=== PATIENT | female | born 1985 | race African-American/Black ===

== ENCOUNTER 2020-09-12 11:26 | Emergency (ER) | payer OTHER, SELFPAY ==
[2020-09-12 11:37] VITALS: BP 205/106; PULSE 110; RESP 18; TEMP 36.9; O2SAT 100; BMI 30.5
--- NOTE | 2020-09-12 12:32 | ED_ITS ---
HPI - General Adult General Chief complaint: Extremity Injury, Upper Stated complaint: injury yest. to right hand/severe pain Time Seen by Provider: 09/12/20 12:32 Source: patient Mode of arrival: Ambulatory Limitations: no limitations History of Present Illness HPI narrative: Patient is a 34-year-old female who yesterday sustained an injury to her right thumb finger while using a mandoline cutting food at home. She was seen at the walk-in clinic because there was difficulty controlling bleeding. A bandage was placed over the area. She comes in today for continued pain to the right finger and also some redness to the right index finger. Related Data Previous Rx's Medication Instructions Recorded tramadol 50 mg PO Q6H PRN #4 tab 09/12/20 Allergies Allergy/AdvReac Type Severity Reaction Status Date / Time coconut Allergy Verified 09/12/20 11:44 pollen extracts Allergy Verified 09/12/20 11:44 Review of Systems Constitutional Constitutional: Denies fever(s) and Denies headache(s) Eyes Eyes: Denies blurry vision ENT Ears, Nose, Mouth, and Throat: Denies headache(s) and Denies sore throat Musculoskeletal Musculoskeletal: Denies tingling Comments: Right thumb pain Integumentary/Breasts Comments: Cut to right thumb Neurologic Neurologic: Denies headache(s) and Denies tingling Psychiatric Psychiatric: Denies depression Hematologic/Lymphatic On Anticoagulants: No Allergic/Immunologic Allergic/Immunologic: Denies urticaria Patient History Medical History Healthy adult Social History Smoking Status: Current every day smoker Smoking Status: Current every day smoker alcohol intake frequency: 0-2 drinks per day Substance Use Type: does not use Exam Initial Vital Signs Initial Vital Signs: Vital Signs Temperature 98.5 F 09/12/20 11:37 Pulse Rate 110 H 09/12/20 11:37 Respiratory Rate 18 09/12/20 11:37 Blood Pressure 205/106 H 09/12/20 11:37 Pulse Oximetry 100 09/12/20 11:37 Const General: cooperative and comfortable Limitations: mental status not altered HENMT Head: normal to inspection and normocephalic Cardio Pulses: radial pulses present on the right Skin Other: Patient does have Gelfoam over the palmar aspect distal right thumb. There is no active bleeding. There is small what appears to be bruising on the palmar aspect of the distal index finger. No active bleeding. Neuro Sensory Exam: no sensory deficits noted Extrem General: capillary refill normal Psych Appearance: grossly normal and well kempt Course Orders Ordered: Discontinued Medications Hydrocodone Bitart/Acetaminophen (Hydrocodone/Acet 5/325 Tablet) 1 tab PO NOW ONE Stop: 09/12/20 12:33 Last Admin: 09/12/20 12:43 Dose: 1 tab Documented by: JERRY Vital Signs Vital signs: Vital Signs - 8 hr 09/12/20 11:37 09/12/20 12:41 Temperature 98.5 F 98.5 F Pulse Rate 110 H 96 H Respiratory Rate 18 Blood Pressure 205/106 H 173/84 H Pulse Oximetry 100 100 Medical Decision Making MDM Narrative Medical decision making narrative: I did not remove the Gelfoam because I did not want to make the wound bleed again but the skin around the area looks well. There appears to be small bruising of the tip of the index finger no active bleeding. I feel no further workup is needed here in the emergency department. There is no signs of infection. Low suspicion for fracture. Will send home with pain medication. She is given return precautions and follow-up inst ructions. She expressed understanding agreement. Discharge Plan Departure Patient Disposition: Home Clinical Impression: Finger laceration Instructions: DI for Minor Laceration Activity Restrictions/Additional Instructions: I recommend that you leave the blood clotting foam on the finger until it falls off on its own. You can change the bandage daily. You can wash your hands like normal and shower like normal. Take Tylenol/ibuprofen as baseline for your discomfort. Return to the emergency department for any new or worsening symptoms Prescriptions: New tramadol 50 mg tablet 50 mg PO Q6H PRN (Reason: pain) Qty: 4 RF: 0
[2020-09-12 12:41] VITALS: BP 173/84; PULSE 96; TEMP 36.9; O2SAT 100
[2020-09-12] MEDS: HYDROCODONE/ACET 5/325 TABLET 1 TAB PO (12:43)
--- NOTE | 2020-09-12 12:47 | PC.NURSE ---
Wound undressed and inspected by Dr. Jain. Wound redressed by this RN with nonadherent dressing and kerlex.
== END 2020-09-12 13:03 | disposition home or self-care (01) ==
PROVIDERS: Emergency Provider Emergency Medicine
DX: S61.011A Laceration without foreign body of right thumb without damage to nail, initial encounter (principal); W26.8XXA Contact with other sharp object(s), not elsewhere classified, initial encounter
CPT/HCPCS: 99283

== ENCOUNTER → 2020-10-04 11:46 | Outpatient (CLI) | payer OTHER, SELFPAY ==
--- NOTE | 2020-10-04 12:05 | DI.RAD.S_ITS ---
PROCEDURE: XR FINGER RT MIN 2V INDICATIONS: right thumb injury, pain TECHNIQUE: AP hand, 2 views of the right finger(s) acquired. COMPARISON: None. FINDINGS: Bones: No fracture. Soft tissues: 4 mm density projecting on skin surface or possibly the superficial soft tissues of the thumb as depicted on the montage image. This could represent foreign body although recommend close clinical correlation and direct visual inspection. IMPRESSION: No fracture. If the patient's symptoms do not improve recommend followup radiographs in 10 days to assess for healing sclerosis/occult injury. Possible foreign body projects at the level of the distal phalanx of the thumb as above. Dictated by: Chris Bradley M.D. on 10/04/2020 at 14:53 Approved by: Chris Bradley M.D. on 10/04/2020 at 14:55
== END ==
PROVIDERS: PCP Registered Nurse; Referring Provider Registered Nurse; Visit Provider Registered Nurse
DX: S69.91XA Unspecified injury of right wrist, hand and finger(s), initial encounter (principal); X58.XXXA Exposure to other specified factors, initial encounter
CPT/HCPCS: 73140

== ENCOUNTER → 2020-12-25 14:16 | Outpatient (CLI) | payer OTHER, SELFPAY ==
[2020-12-25 16:13] LABS: Add Manual Diff / Slide Review NO; Basophils Absolute Auto 100 /uL (0-100); Basophils Percent Auto 0.8 % (0-2); Eosinophils Absolute Auto 100 /uL (0-450); Eosinophils Percent Auto 1.3 % (2-4); Lymphocytes Absolute Auto 1900 /uL (1100-4500); Lymphocytes Percent Auto 22.9 % (25-40); Mean Corpuscular HGB Conc 34.3 % (30-36); Mean Corpuscular Hemoglobin 29.6 PG (26-34); Mean Corpuscular Volume 86.4 fL (80-100); Monocytes Absolute Auto 400 /uL (0-900); Monocytes Percent Auto 5.1 % (3-14); Neutrophils Absolute Auto 5700 /uL (1500-7000); Neutrophils Percent Auto 69.9 % (50-75); Platelet Count 354 X10^3/uL (150-400); Red Blood Cell Count 4.74 X10^6/uL (4.0-5.2); White Blood Cell Count 8.2 X10^3/uL (4.5-11.0)
[2020-12-25 16:15] LABS: Alanine Aminotransferase 30 IU/L (<35); Albumin 5.2 g/dL (3.5-5.0); Albumin Globulin Ratio 1.2 (1.0-2.8); Alkaline Phosphatase 77 U/L (38-126); Aspartate Aminotransferase 34 IU/L (14-36); BUN Creatinine Ratio 16.9 (6-22); Bilirubin Total 0.5 mg/dL (0.2-1.3); Blood Urea Nitrogen 10 mg/dL (7-17); Calcium 10.5 mg/dL (8.4-10.2); Carbon Dioxide 20 mmol/L (22-32); Chloride 105 mmol/L (98-107); Cholesterol 256 mg/dL (140-199); Estimated Glomerular Filt Rate > 60.0 mL/min (>60); Globulin 4.3 g/dL (1.7-4.1); Glucose 86 mg/dL (70-100); HDL Cholesterol 56 mg/dL (40-60); HEMOLYSIS < 15 (0-50); LDL Cholesterol Calculated 153 mg/dL (<100); Potassium 3.8 mmol/L (3.4-5.1); Sodium 137 mmol/L (137-145); Total Protein 9.5 g/dL (6.3-8.2); Triglycerides 234 mg/dL (35-150)
[2020-12-25 16:46] LABS: TSH w/ Reflex to FT4 1.46 uIU/mL (0.47-4.68)
== END ==
PROVIDERS: PCP Family Medicine; Referring Provider Family Medicine; Visit Provider Family Medicine
DX: I10 Essential (primary) hypertension (principal); Z83.42 Family history of familial hypercholesterolemia
CPT/HCPCS: 36415; 80053; 80061; 84443; 85025

== ENCOUNTER 2020-12-28 00:43 | Emergency (ER) | payer OTHER, SELFPAY ==
[2020-12-28] VITALS (13 sets, daily range): BP systolic 146–214; BP diastolic 69–107; PULSE 89–106; RESP 17–24; TEMP 37.1; O2SAT 99–100; BMI 30.4
[2020-12-28] MEDS: SODIUM CHLORIDE 0.9% 1,000 ML 150 ML IV (01:12)
[2020-12-28] MEDS: LABETALOL 20 MG/4 ML SYRINGE IV (01:12)
[2020-12-28 01:32] LABS: Add Manual Diff / Slide Review NO; Basophils Absolute Auto 0 /uL (0-100); Basophils Percent Auto 0.4 % (0-2); Eosinophils Absolute Auto 100 /uL (0-450); Eosinophils Percent Auto 1.2 % (2-4); Hemoglobin 12.7 g/dL (12.0-16.0); Lymphocytes Absolute Auto 1800 /uL (1100-4500); Lymphocytes Percent Auto 17.1 % (25-40); Mean Corpuscular HGB Conc 33.4 % (30-36); Mean Corpuscular Hemoglobin 29.1 PG (26-34); Mean Corpuscular Volume 87.1 fL (80-100); Monocytes Absolute Auto 600 /uL (0-900); Monocytes Percent Auto 6.3 % (3-14); Neutrophils Absolute Auto 7700 /uL (1500-7000); Platelet Count 351 X10^3/uL (150-400); Red Blood Cell Count 4.36 X10^6/uL (4.0-5.2); Red Cell Distribution Width 12.8 % (11.6-14.8); White Blood Cell Count 10.3 X10^3/uL (4.5-11.0)
[2020-12-28 01:40] LABS: Alanine Aminotransferase 27 IU/L (<35); Albumin 4.8 g/dL (3.5-5.0); Albumin Globulin Ratio 1.3 (1.0-2.8); Alkaline Phosphatase 68 U/L (38-126); Aspartate Aminotransferase 33 IU/L (14-36); BUN Creatinine Ratio 16.1 (6-22); Bilirubin Total 0.7 mg/dL (0.2-1.3); Blood Urea Nitrogen 10 mg/dL (7-17); Calcium 9.7 mg/dL (8.4-10.2); Carbon Dioxide 22 mmol/L (22-32); Chloride 103 mmol/L (98-107); Creatine Kinase 96 U/L (30-135); Estimated Glomerular Filt Rate > 60.0 mL/min (>60); Globulin 3.8 g/dL (1.7-4.1); Glucose 119 mg/dL (70-100); HEMOLYSIS < 15 (0-50); Lipase 97 U/L (23-300); Potassium 3.7 mmol/L (3.4-5.1); Sodium 137 mmol/L (137-145); Total Protein 8.6 g/dL (6.3-8.2)
--- NOTE | 2020-12-28 01:41 | ED_ITS ---
HPI - General Adult General Chief complaint: Hypertension Stated complaint: headache x1 day high blood pressure Time Seen by Provider: 12/28/20 00:46 History of Present Illness HPI narrative: 35-year-old female daily smoker with history of hypertension presents with family in the chief complaint of a terrible headache over the course of the day that started at about 3:00 a.m. this morning. She has found her blood pressure to be slowly creeping upwards despite recently starting amlodipine. She had contacted her primary care provider about 24 hours ago encouraged her to take a 2nd amlodipine and if in 1 hour she still had elevated blood pressure and symptoms to present to the emergency department. She went throughout the day having elevated pressures over 200 with headache and nausea but no chest pain or shortness of breath. No numbness, tingling or weakness. She presented tonight with worsening headache. She denies any neck pain or the use of blood thinners. She has had no fever or chills. She denies any trauma or injury. She denies blurred vision, trouble with speech or numbness, tingling or weakness Related Data Previous Rx's Medication Instructions Recorded fluticasone propionate 50 1 spray INTRANASAL BID PRN #9.9 ml 10/04/20 mcg/actuation nasal spray,suspension (Allergy Relief (fluticasone)) montelukast 10 mg tablet 10 mg PO DAILY PRN 30 Days #30 tab 10/04/20 (Singulair) amlodipine 5 mg tablet 5 mg PO .qhs #90 tab 12/25/20 bupropion HCl 150 mg tablet,12 hr 150 mg PO BID #90 ea 12/25/20 sustained-release (Wellbutrin SR) metoprolol succinate 25 mg 25 mg PO DAILY #30 tab 12/28/20 tablet,extended release 24 hr Allergies Allergy/AdvReac Type Severity Reaction Status Date / Time coconut Allergy Verified 12/25/20 13:31 pollen extracts Allergy Verified 12/25/20 13:31 Review of Systems Review of Systems Narrative: GENERAL: See HPI HEENT: Denies sinus pain, ear pain, sore throat, difficulty swallowing, dizziness. RESPIRATORY: Denies dyspnea, cough, wheezing, hemoptysis, sputum. CARDIOVASCULAR: Denies chest pain, palpitations, orthopnea, edema, GASTROINTESTINAL: Denies nausea, vomiting, abdominal pain, diarrhea, constipat ion, melena. : Denies dysuria, frequency, incontinence, hematuria, urinary retention. MUSCULOSKELETAL: denies weakness, joint pain, or bony pain SKIN: Denies rash, skin lesions, or other NEUROLOGIC: See HPI PSYCHIATRIC: No concerning psychosocial issues. 12 point review of systems is negative except for those stated above Patient History Medical History Elevated blood protein Healthy adult Hypercalcemia Injury of right thumb Social History Smoking Status: Current every day smoker Smoking Status: Current every day smoker alcohol intake frequency: 0-2 drinks per day Substance Use Type: does not use Exam Narrative Exam Narrative: GENERAL: [35] year old patient appears stated age. Well- developed patient, in mild distress. HEAD: Atraumatic. Normocephalic. EYES: Pupils equal round and reactive. Extraocular motions intact. No scleral icterus. No injection or drainage. ENT: Nose without bleeding, purulent drainage. Throat without erythema, tonsillar hypertrophy or exudate. Airway patent. NECK: Trachea midline. Non tender CARDIOVASCULAR: Regular rate and rhythm without murmurs, gallops, or rubs. RESPIRATORY: Clear to auscultation. Breath sounds equal bilaterally. No wheezes, rales, or rhonchi. GASTROINTESTINAL: Abdomen soft, non-tender, nondistended. EXTREMITIES: No edema or joint tenderness. BACK: Nontender without deformity or crepitance. No flank tenderness. NEURO: AOx3. SKIN: No rash or erythema of visible areas Initial Vital Signs Initial Vital Signs: Vital Signs Temperature 98.7 F 12/28/20 00:45 Pulse Rate 106 H 12/28/20 00:45 Respiratory Rate 18 12/28/20 00:45 Blood Pressure 214/107 H 12/28/20 00:45 Pulse Oximetry 100 12/28/20 00:45 Course Orders Ordered: ED Orders 12/28/20 00:54 EKG-12 Lead Stat 12/28/20 01:25 Complete Blood Count AUTO DIFF Stat Comprehensive Metabolic Panel Stat Lipase Stat NT-proBNP (BNP-Adult 18+) Stat Troponin & CK Cardiac Panel Stat Sodium Chloride (Normal Saline 0.9%) 1,000 mls @ 150 mls/hr IV CONT GRAHAM Last Infusion: 12/28/20 03:05 Dose: 0 mls/hr Documented by: Admin: 12/28/20 01:12 Dose: 150 mls/hr Documented by: SOFIA Discontinued Medications Labetalol HCl (Labetalol 20 Mg/4 Ml Syringe) 20 mg IV NOW ONE Stop: 12/28/20 00:55 Last Admin: 12/28/20 01:12 Dose: 20 mg Documented by: SOFIA Reevaluation(s) Reevaluation #1: Tremendous improvement after labetalol. Headache is gone, no other symptoms, blood pressure in the 150s Vital Signs Vital signs: Vital Signs - 8 hr 12/28/20 00:45 12/28/20 01:12 12/28/20 01:24 Temperature 98.7 F Pulse Rate 106 H 99 H 93 H Respiratory Rate 18 Blood Pressure 214/107 H 200/90 H Pulse Oximetry 100 100 12/28/20 01:25 12/28/20 01:30 12/28/20 01:40 Temperature Pulse Rate 93 H 92 H 94 H Respiratory Rate 17 23 24 Blood Pressure 162/69 H 164/79 H 153/71 H Pulse Oximetry 100 99 12/28/20 01:45 12/28/20 02:00 12/28/20 02:15 Temperature Pulse Rate 89 92 H Respiratory Rate 22 Blood Pressure 157/77 H 161/84 H 157/78 H Pulse Oximetry 100 100 12/28/20 02:23 12/28/20 02:30 12/28/20 03:00 Temperature Pulse Rate 89 92 H 93 H Respiratory Rate 19 20 20 Blood Pressure 164/81 H 146/76 H 152/78 H Pulse Oximetry 99 99 99 Medical Decision Making Lab Data Result diagrams: 12/28/20 01:25 12/28/20 01:25 Labs: Lab Results 12/28/20 12/28/20 Range/Units 01:25 01:25 WBC 10.3 (4.5-11.0) X10^3/uL RBC 4.36 (4.0-5.2) X10^6/uL Hgb 12.7 (12.0-16.0) g/dL Hct 38.0 (36-46) % MCV 87.1 (80-100) fL MCH 29.1 (26-34) PG MCHC 33.4 (30-36) % RDW 12.8 (11.6-14.8) % Plt Count 351 (150-400) X10^3/uL Neut % (Auto) 75.0 (50-75) % Lymph % (Auto) 17.1 L (25-40) % [place] % (Auto) 6.3 (3-14) % Eos % (Auto) 1.2 L (2-4) % Baso % (Auto) 0.4 (0-2) % Neut # (Auto) 7700 H (3907-6465) /uL Lymph # (Auto) 1800 (6803-0307) /uL [place] # (Auto) 600 (0-900) /uL Eos # (Auto) 100 (0-450) /uL Baso # (Auto) 0 (0-100) /uL Sodium 137 (137-145) mmol/L Potassium 3.7 (3.4-5.1) mmol/L Chloride 103 (98-107) mmol/L Carbon Dioxide 22 (22-32) mmol/L BUN 10 (7-17) mg/dL Creatinine 0.62 (0.52-1.04) mg/dL Estimated GFR > 60.0 (>60) mL/min BUN/Creatinine Ratio 16.1 (6-22) Glucose 119 H (70-100) mg/dL Calcium 9.7 (8.4-10.2) mg/dL Total Bilirubin 0.7 (0.2-1.3) mg/dL AST 33 (14-36) IU/L ALT 27 (<35) IU/L Alkaline Phosphatase 68 (38-126) U/L Total Creatine Kinase 96 (30-135) U/L CK-MB (CK-2) TNP CK-MB (CK-2) Rel Index TNP Troponin I < 0.012 (0.01-0.034) ng/mL NT-Pro-B Natriuret Pep 168 H (<125) pg/mL Total Protein 8.6 H (6.3-8.2) g/dL Albumin 4.8 (3.5-5.0) g/dL Globulin 3.8 (1.7-4.1) g/dL Albumin/Globulin Ratio 1.3 (1.0-2.8) Lipase 97 (23-300) U/L [facility] Narrative Medical decision making narrative: Patient presents with significant headache and high blood pressure. She has complete resolution of symptoms with reduction in blood pressure. Physical exam and labs are reassuring. We discussed multiple medication options. It became clear that amlodipine even at a double dose would not help her. She responded well to labetalol and for that reason discussed starting her on metoprolol as an outpatient. She understands return precautions and the importance of close follow-up. Questions have been answered to her apparent satisfaction Discharge Plan Departure Patient Disposition: Home Clinical Impression: Essential hypertension Instructions: DI for High Blood Pressure Activity Restrictions/Additional Instructions: *You have been diagnosed with [hypertension] *What to do: * please stop the amlodipine as we discussed. Otherwise Please continue to take your regular medications as directed. [x ] New medication prescriptions sent to your pharmacy: [[facility] in [place]] [ ] New medication written as a paper prescription [ ] No new medications given *Please follow up with your primary care provider in 2-3 days, call for an appointment. Let them know you were seen in the Emergency Department and that we ask that you be seen in follow up. We will electronically transmit a record of today's note if your PCP is in our system *If you do not have a primary care provider please contact the [facility] Resource line at [phone]. They will ask some questions about your medical history and help get you set up with a doctor in the community. *Return to Emergency Department if you should have any new, worsening or concerning symptoms, such as [fever greater than 101 F, shaking chills, worsening pain, persistent vomiting or other bothersome symptoms] Prescriptions: New metoprolol succinate 25 mg tablet extended release 24 hr 25 mg PO DAILY Qty: 30 RF: 0 No Action montelukast [Singulair] 10 mg tablet 10 mg PO DAILY PRN (Reason: allergic rhinitis) 30 Days Qty: 30 RF: 1 fluticasone propionate [Allergy Relief (fluticasone)] 50 mcg/actuation spray,suspension 1 spray intranasal BID PRN (Reason: allergy symptoms) Qty: 9.9 RF: 1 amlodipine 5 mg tablet 5 mg PO .qhs Qty: 90 RF: 0 bupropion HCl [Wellbutrin SR] 150 mg tablet sustained-release 12 hr 150 mg PO BID Qty: 90 RF: 1 Referrals: Priyank Chu MD [Primary Care Provider] -
[2020-12-28 01:52] LABS: NT-proBNP (BNP-Adult 18+) 168 pg/mL (<125); Troponin I < 0.012 ng/mL (0.01-0.034)
== END 2020-12-28 03:48 | disposition home or self-care (01) ==
PROVIDERS: Emergency Provider Emergency Medicine; PCP Family Medicine
DX: I10 Essential (primary) hypertension (principal); R51.9 Headache, unspecified
CPT/HCPCS: 36415; 80053; 82550; 83690; 83880; 84484; 85025; 93005; 96361; 96374; 99284

== ENCOUNTER → 2022-05-16 16:04 | Outpatient (CLI) | payer OTHER, SELFPAY ==
[2022-05-16 16:40] LABS: Appearance Urine UA CLEAR; Bilirubin Urine UA NEGATIVE (NEGATIVE); Color Urine UA YELLOW; Glucose Urine UA TRACE g/dL (Negative); Ketones Urine UA TRACE (NEGATIVE); Leukocyte Esterase Urine UA NEGATIVE (NEGATIVE); Nitrite Urine UA NEGATIVE (Negative); Occult Blood Urine UA NEGATIVE (Negative); Protein Urine UA 1+ (Negative); Urobilinogen Urine UA 0.2 E.U./dL (0.2)
[2022-05-16 16:47] LABS: pH Urine UA 5.5 (4.5-8.0)
[2022-05-16 16:55] LABS: Add Manual Diff / Slide Review NO; Basophils Absolute Auto 0 /uL (0-100); Basophils Percent Auto 0.4 % (0-2); Eosinophils Absolute Auto 100 /uL (0-450); Eosinophils Percent Auto 0.7 % (2-4); Hematocrit 31.5 % (36-46); Hemoglobin 10.7 g/dL (12.0-16.0); Lymphocytes Absolute Auto 1500 /uL (1100-4500); Lymphocytes Percent Auto 15.9 % (25-40); Mean Corpuscular Hemoglobin 27.9 PG (26-34); Mean Corpuscular Volume 82.1 fL (80-100); Monocytes Absolute Auto 600 /uL (0-900); Neutrophils Absolute Auto 7500 /uL (1500-7000); Platelet Count 403 X10^3/uL (150-400); Red Blood Cell Count 3.84 X10^6/uL (4.0-5.2); Red Cell Distribution Width 13.2 % (11.6-14.8); White Blood Cell Count 9.7 X10^3/uL (4.5-11.0)
[2022-05-18 06:36] LABS: RPR Screen Non Reactive (Non Reactive)
[2022-05-19 09:54] LABS: Varicella IgG Antibody 3915 index (Immune >165)
[2022-05-19 15:44] LABS: Hepatitis B Surface Antigen NEGATIVE s/c (NEGATIVE)
[2022-05-19 16:01] LABS: HIV 1 & 2 Ab/Ag 4th Gen Combo NEGATIVE (NEGATIVE); Hep C Virus Ab w/Reflex Quant NEGATIVE s/c (NEGATIVE)
== END ==
PROVIDERS: PCP Family Medicine; Referring Provider Obstetrics & Gynecology; Visit Provider Obstetrics & Gynecology
DX: Z34.91 Encounter for supervision of normal pregnancy, unspecified, first trimester (principal)
CPT/HCPCS: 36415; 80055; 81003; 86787; 86803; 86850; 86900; 86901; 87389

== ENCOUNTER → 2022-05-20 14:14 | Outpatient (CLI) | payer OTHER, SELFPAY ==
[2022-05-20 15:22] LABS: Add Manual Diff / Slide Review NO; Basophils Absolute Auto 0 /uL (0-100); Basophils Percent Auto 0.3 % (0-2); Eosinophils Absolute Auto 100 /uL (0-450); Eosinophils Percent Auto 0.7 % (2-4); Hematocrit 31.6 % (36-46); Hemoglobin 10.5 g/dL (12.0-16.0); Lymphocytes Absolute Auto 1200 /uL (1100-4500); Lymphocytes Percent Auto 11.4 % (25-40); Mean Corpuscular HGB Conc 33.1 % (30-36); Mean Corpuscular Hemoglobin 27.9 PG (26-34); Mean Corpuscular Volume 84.3 fL (80-100); Monocytes Absolute Auto 600 /uL (0-900); Monocytes Percent Auto 5.3 % (3-14); Neutrophils Absolute Auto 8900 /uL (1500-7000); Neutrophils Percent Auto 82.3 % (50-75); Platelet Count 421 X10^3/uL (150-400); Red Blood Cell Count 3.74 X10^6/uL (4.0-5.2); Red Cell Distribution Width 13.4 % (11.6-14.8); White Blood Cell Count 10.8 X10^3/uL (4.5-11.0)
[2022-05-20 15:34] LABS: Alanine Aminotransferase 22 IU/L (<35); Aspartate Aminotransferase 23 IU/L (14-36); BUN Creatinine Ratio 21.4 (6-22); Blood Urea Nitrogen 15 mg/dL (7-17); Estimated Glomerular Filt Rate > 60 mL/min (>60); Uric Acid 4.8 mg/dL (2.5-6.2)
[2022-05-20 15:50] LABS: Free T4, Direct Thyroxine 1.05 ng/dL (0.78-2.19)
[2022-05-20 16:04] LABS: Thyroid Stimulating Hormone 0.027 uIU/mL (0.47-4.68)
== END ==
PROVIDERS: PCP Family Medicine; Referring Provider Obstetrics & Gynecology; Visit Provider Obstetrics & Gynecology
DX: O09.521 Supervision of elderly multigravida, first trimester (principal); O30.001 Twin pregnancy, unspecified number of placenta and unspecified number of amniotic sacs, first trimester; I10 Essential (primary) hypertension
CPT/HCPCS: 36415; 82565; 84439; 84443; 84450; 84460; 84520; 84550; 85025